=== PATIENT | male | born 1965 | race Caucasian/White ===

== ENCOUNTER 2017-08-18 10:27 | Emergency (ER) | payer OTHER ==
[~2017-08-18] VITALS: Ht 177.8 cm; Wt 99.8 kg
[2017-08-18] MEDS ORDERED: ZANTAC 150MG T150 MG PO (10:36)
[2017-08-18] MEDS ORDERED: CIPRO500 MG PO (11:11)
[2017-08-18 12:56] VITALS: BP 129/96
== END 2017-08-18 12:57 | disposition home or self-care (01) ==
LOC: M.ERS 10:27
DX: S91.331A Puncture wound without foreign body, right foot, initial encounter (principal); K21.9 Gastro-esophageal reflux disease without esophagitis; Z88.2 Allergy status to sulfonamides; W22.8XXA Striking against or struck by other objects, initial encounter; Y93.89 Activity, other specified; Y92.89 Other specified places as the place of occurrence of the external cause; Y99.8 Other external cause status